=== PATIENT | female | born 1985 | race Caucasian/White ===

== ENCOUNTER 2017-02-28 09:34 | Day surgery (SDC) | payer BC ==
--- NOTE | ~2017-02-28 | EGD ---
EGD REPORT [facility] [address] [address] NAME: ALICE JEFFREY : [birth year] STATUS : [facility] [place] [facility] PAT#: [id number] AGE: 31 ADM/REG DATE : 02/28/17 MR#: [id number] REPORT SERV DATE: 02/28/17 DICTATED BY: MACK CABRERA DATE: 02/28/17 REPORT STATUS : Draft TRANSCRIBED BY: [facility] DATE: 02/28/17 [facility] Patient Name: Alice Jeffrey Date of : 1985 Attending MD: MACK CABRERA MD Procedure Date No Time: 02/28/2017 Procedure: Colonoscopy Indications: Abdominal pain in the right lower quadrant, FH of Colon Cancer - 1st degree relative, FH of Colon Cancer -distant relative, Abnormal CT of the GI tract, Constipation Medicines: as per anesthesia Complications: No immediate complications. Procedure: Pre-Anesthesia Assessment: - ASA Grade Assessment: III - A patient with severe systemic disease. After I obtained informed consent, the scope was passed under direct vision. Throughout the procedure, the patient's blood pressure, pulse, and oxygen saturations were monitored continuously. The PCF [id number] was introduced through the anus and advanced to the cecum, identified by appendiceal orifice and ileocecal valve. The colonoscopy was performed without difficulty. The patient tolerated the procedure. The quality of the bowel preparation was fair. Findings: The perianal and digital rectal examinations were normal. Internal hemorrhoids were found during endoscopy and were mild. Impression: - Internal hemorrhoids. Recommendation: - Repeat colonoscopy at age 52 for surveillance. Procedure Code(s): --- Professional --- 40098, Colonoscopy, flexible, proximal to splenic flexure; diagnostic, with or without collection of specimen(s) by brushing or washing, with or without colon decompression (separate procedure) Diagnosis Code(s): --- Professional --- K64.8, Other hemorrhoids R10.31, Right lower quadrant pain Z80.0, Family history of malignant neoplasm of digestive organs EGD REPORT [facility] [address] [place] [address] [place]. [address] NAME: ALICE JEFFREY : [birth year] STATUS : [facility] [place] [facility] PAT#: [id number] AGE: 31 ADM/REG DATE : 02/28/17 MR#: [id number] REPORT SERV DATE: 02/28/17 DICTATED BY: MACK CABRERA. DATE: 02/28/17 REPORT STATUS : Draft TRANSCRIBED BY: [employer] DATE: 02/28/17 R93.3, Abnormal findings on diagnostic imaging of other parts of digestive tract K59.00, Constipation, unspecified CPT copyright 2013 [employer]. All rights reserved. The codes documented in this report are preliminary and upon remote medical coder review may be revised to meet current compliance requirements. MACK CABRERA MD 02/28/2017 12:00 PM This report has been signed electronically. Number of Addenda: 0 Note Initiated On: 02/28/2017 11:20 AM Scope Withdrawal Time 0 hours 7 minutes 31 seconds [id number] [facility] [place] [address]
[~2017-02-28 09:34] MED LIST: KEPPRA1000 MG PO; KLONO5 PO; LEXAPRO10 PO
== END 2017-02-28 23:59 | disposition home health service (06) ==
LOC: DMU 09:34
PROVIDERS: Internal Medicine Gastroenterology
PROC: 0DJD8ZZ Inspection of Lower Intestinal Tract, Via Natural or Artificial Opening Endoscopic (ICD-10-PCS; principal; 2017-02-28 10:30)
DX: K64.8 Other hemorrhoids (principal); F31.9 Bipolar disorder, unspecified; R56.9 Unspecified convulsions; F41.9 Anxiety disorder, unspecified; Z80.0 Family history of malignant neoplasm of digestive organs; Z79.899 Other long term (current) drug therapy; Z98.890 Other specified postprocedural states
CPT/HCPCS: 84703